=== PATIENT | male | born 1990 | race American Indian/Alaskan Native ===

== ENCOUNTER 2019-09-27 06:03 | Emergency (ER) | payer SELFPAY ==
[2019-09-27] MEDS ORDERED: SODIUM CHLORIDE 0.9% 1000 ML 1,000 ML ONE (06:31)
[2019-09-27] MEDS ORDERED: ONDANSETRON 4 MG/2 ML INJ ONE ×2 (06:31→06:36)
[2019-09-27] MEDS ORDERED: SODIUM CHLORIDE 0.9% 1000 ML 1,000 ML IV ONE (06:36)
[2019-09-27] MEDS ORDERED: fentaNYL 100 MCG/2 ML INJ ONE (06:36)
[2019-09-27 06:42] LABS: Basophils # (Auto) 0.1 K/mm3 (0.0-0.1); Basophils % (Auto) 0.7 % (0.0-1.8); Eosinophils # (Auto) 0.1 K/mm3 (0.0-0.4); Eosinophils % (Auto) 1.2 % (0.0-4.3); Hematocrit 43.4 % (35.5-45.6); Hemoglobin 14.1 gm/dl (11.8-15.2); Lymphocytes # (Auto) 2.3 K/mm3 (1.2-5.4); Lymphocytes % (Auto) 24.6 % (13.4-35.0); Mean Corpuscular HGB Conc 33 % (32-34); Mean Corpuscular Volume 78 fl (84-94); Monocytes % (Auto) 11.3 % (0.0-7.3); Platelet Count 383 K/mm3 (140-440)
[2019-09-27] MEDS ORDERED: ONDANSETRON 4 MG/2 ML INJ IV ONE (06:43)
[2019-09-27] MEDS ORDERED: fentaNYL 100 MCG/2 ML INJ IV ONE (06:43)
[2019-09-27 07:27] LABS: Alanine Aminotransferase 57 units/L (7-56); Albumin 4.4 g/dL (3.9-5); BUN/Creatinine Ratio 8; Blood Urea Nitrogen 8 mg/dL (9-20); Calcium 9.5 mg/dL (8.4-10.2); Hemolysis Index 16
[2019-09-27] MEDS ORDERED: KETOROLAC 30 MG/1 ML INJ IV ONE (08:01)
[2019-09-27] MEDS: FAMOTIDINE 20 MG/2 ML INJ IV ONE ×2 (08:10→08:14)
--- NOTE | 2019-09-27 08:19 | Ultrasound Report ---
ULTRASOUND ABDOMEN, COMPLETE INDICATION: uppr abd pain. COMPARISON: No relevant prior imaging study available. FINDINGS: Pancreas: No significant abnormality. Abdominal Aorta: No significant abnormality. IVC: No significant abnormality. Liver: The liver measures 19.6 cm in length. Diffusely echogenic. Normal hepatopedal blood flow in t he main portal vein. Gallbladder: Mild cholelithiasis with slight gallbladder wall thickening. There was a reported sonogr aphic Fung sign. Bile ducts: No significant abnormality. Common bile duct measures 8 mm. Kidneys: Right: 10.8 cm in length. No significant abnormality. Left: 10.9 cm in length. No signif icant abnormality. Spleen: No significant abnormality. Free fluid: None. Additional Findings: None. IMPRESSION: 1. Cholelithiasis with slight gallbladder wall thickening and reported sonographic Fung sign. These findings can be seen with acute cholecystitis and correlation with exam findings is recommended. In addition the CBD is slightly prominent measuring 8 mm but no gross CBD stone or pancreatic head mass was visualized on this exam. 2. Hepatomegaly with diffusely echogenic liver, most commonly seen with steatosis. Signer Name: Mac Almaraz MD Signed: 09/27/2019 8:14 AM Workstation Name: [id number]
--- NOTE | 2019-09-27 08:20 | Emergency Department Report ---
ED Abdominal Pain HPI - General Chief Complaint: Abdominal Pain Stated Complaint: ABDOMINAL PAIN Time Seen by Provider: 09/27/19 07:32 Source: patient Mode of arrival: Ambulatory Limitations: No Limitations - History of Present Illness Initial Comments: This is a 29-year-old male with no prior medical history or conditions who presents the ED today complaining of right upper abdominal pain that began around 1 AM this morning. Patient states that he had some fries last night for dinner otherwise no unusual foods. Patient states he has had a couple episodes of vomiting with severe cramping-like pain to the upper abdomen. Patient denies any injury, diarrhea, fever, chest pain, shortness of breath. Patient also denies alcohol consumption. MD Complaint: abdominal pain Location: RUQ Migration to: no migration Severity: moderate Severity scale (0 -10): 10 Quality: cramping, aching Associated Symptoms: nausea, vomiting. denies: diarrhea, fever, dysuria - Related Data Previous Rx's Medication Instructions Recorded Last Taken Type Dicyclomine [Bentyl] 20 mg PO TID #30 tablet 09/27/19 Unknown Rx Famotidine [Pepcid] 20 mg PO BID #20 tablet 09/27/19 Unknown Rx Metoclopramide [Reglan] 10 mg PO TID #30 tab 09/27/19 Unknown Rx traMADoL [Ultram 50 MG tab] 50 mg PO Q6HR PRN #20 tablet 09/27/19 Unknown Rx Allergies Allergy/AdvReac Type Severity Reaction Status Date / Time No Known Allergies Allergy Unverified 09/27/19 06:14 ED Review of Systems ROS: Stated complaint: ABDOMINAL PAIN Other details as noted in HPI Comment: All other systems reviewed and negative ED Past Medical Hx - Past Medical History Previous Medical History?: No - Surgical History Past Surgical History?: No - Social History Smoking Status: Never Smoker Substance Use Type: Marijuana - Medications Home Medications: Home Medications Medication Instructions Recorded Confirmed Last Taken Type Dicyclomine [Bentyl] 20 mg PO TID #30 tablet 09/27/19 Unknown Rx Famotidine [Pepcid] 20 mg PO BID #20 tablet 09/27/19 Unknown Rx Metoclopramide [Reglan] 10 mg PO TID #30 tab 09/27/19 Unknown Rx traMADoL [Ultram 50 MG tab] 50 mg PO Q6HR PRN #20 tablet 09/27/19 Unknown Rx ED Physical Exam - General Limitations: No Limitations General appearance: alert, in no apparent distress - Head Head exam: Present: atraumatic, normocephalic - Eye Eye exam: Present: normal appearance - ENT ENT exam: Present: mucous membranes moist - Neck Neck exam: Present: normal inspection - Respiratory Respiratory exam: Present: normal lung sounds bilaterally. Absent: respiratory distress - Cardiovascular Cardiovascular Exam: Present: regular rate, normal rhythm. Absent: systolic murmur, diastolic murmur, rubs, gallop - GI/Abdominal GI/Abdominal exam: Present: soft, normal bowel sounds. Absent: tenderness, guarding, rebound, organomegaly, mass - Expanded GI/Abdominal Exam Expanded GI/Abdominal exam: Present: Fung's sign. Absent: Rovsing's sign, tenderness at Mcburney's Point - Rectal Rectal exam: Present: deferred - Extremities Exam Extremities exam: Present: normal inspection - Back Exam Back exam: Present: normal inspection - Neurological Exam Neurological exam: Present: alert, oriented X3 - Psychiatric Psychiatric exam: Present: normal affect, normal mood - Skin Skin exam: Present: warm, dry, intact, normal color. Absent: rash ED Course Vital Signs 09/27/19 09/27/19 09/27/19 06:08 07:03 07:37 Temperature 98.1 F 97.8 F Pulse Rate 54 L 52 L Respiratory 22 16 18 Rate Blood Pressure 150/111 Blood Pressure 160/93 [Left] O2 Sat by Pulse 99 100 Oximetry 09/27/19 09/27/19 09/27/19 07:53 07:56 08:10 Temperature Pulse Rate 47 L Respiratory 18 18 22 Rate Blood Pressure Blood Pressure [Left] O2 Sat by Pulse 99 100 Oximetry 09/27/19 09/27/19 09/27/19 08:38 08:40 09:02 Temperature Pulse Rate 47 L 48 L Respiratory 18 18 18 Rate Blood Pressure Blood Pressure 179/111 166/108 [Left] O2 Sat by Pulse 99 100 Oximetry ED Medical Decision Making - Lab Data Result diagrams: 09/27/19 06:28 09/27/19 06:28 Laboratory Last Values WBC 9.2 K/mm3 (4.5-11.0) 09/27/19 06:28 RBC 5.60 M/mm3 (3.65-5.03) H 09/27/19 06:28 Hgb 14.1 gm/dl (11.8-15.2) 09/27/19 06:28 Hct 43.4 % (35.5-45.6) 09/27/19 06:28 MCV 78 fl (84-94) L 09/27/19 06:28 MCH 25 pg (28-32) L 09/27/19 06:28 MCHC 33 % (32-34) 09/27/19 06:28 RDW 16.0 % (13.2-15.2) H 09/27/19 06:28 Plt Count 383 K/mm3 (140-440) 09/27/19 06:28 Lymph % (Auto) 24.6 % (13.4-35.0) 09/27/19 06:28 [place] % (Auto) 11.3 % (0.0-7.3) H 09/27/19 06:28 Eos % (Auto) 1.2 % (0.0-4.3) 09/27/19 06:28 Baso % (Auto) 0.7 % (0.0-1.8) 09/27/19 06:28 Lymph # 2.3 K/mm3 (1.2-5.4) 09/27/19 06:28 [place] # 1.0 K/mm3 (0.0-0.8) H 09/27/19 06:28 Eos # 0.1 K/mm3 (0.0-0.4) 09/27/19 06:28 Baso # 0.1 K/mm3 (0.0-0.1) 09/27/19 06:28 Seg Neutrophils % 62.2 % (40.0-70.0) 09/27/19 06:28 Seg Neutrophils # 5.7 K/mm3 (1.8-7.7) 09/27/19 06:28 Sodium 140 mmol/L (137-145) 09/27/19 06:28 Potassium 3.2 mmol/L (3.6-5.0) L 09/27/19 06:28 Chloride 99.4 mmol/L (98-107) 09/27/19 06:28 Carbon Dioxide 22 mmol/L (22-30) 09/27/19 06:28 Anion Gap 22 mmol/L 09/27/19 06:28 BUN 8 mg/dL (9-20) L 09/27/19 06:28 Creatinine 1.0 mg/dL (0.8-1.5) 09/27/19 06:28 Estimated GFR > 60 ml/min 09/27/19 06:28 BUN/Creatinine Ratio 8 % 09/27/19 06:28 Glucose 146 mg/dL (75-100) H 09/27/19 06:28 Calcium 9.5 mg/dL (8.4-10.2) 09/27/19 06:28 Total Bilirubin 0.30 mg/dL (0.1-1.2) 09/27/19 06:28 AST 41 units/L (5-40) H 09/27/19 06:28 ALT 57 units/L (7-56) H 09/27/19 06:28 Alkaline Phosphatase 63 units/L (35-129) 09/27/19 06:28 Total Protein 8.2 g/dL (6.3-8.2) 09/27/19 06:28 Albumin 4.4 g/dL (3.9-5) 09/27/19 06:28 Albumin/Globulin Ratio 1.2 % 09/27/19 06:28 Lipase 22 units/L (13-60) 09/27/19 06:52 - EKG Data EKG shows normal: sinus rhythm Rate: bradycardia - EKG Data Interpretation: normal EKG - Radiology Data Radiology results: report reviewed, image reviewed ULTRASOUND ABDOMEN, COMPLETE INDICATION: uppr abd pain. COMPARISON: No relevant prior imaging study available. FINDINGS: Pancreas: No significant abnormality. Abdominal Aorta: No significant abnormality. IVC: No significant abnormality. Liver: The liver measures 19.6 cm in length. Diffusely echogenic. Normal hepatopedal blood flow in the main portal vein. Gallbladder: Mild cholelithiasis with slight gallbladder wall thickening. There was a reported sonographic Fung sign. Bile ducts: No significant abnormality. Common bile duct measures 8 mm. Kidneys: Right: 10.8 cm in length. No significant abnormality. Left: 10.9 cm in length. No significant abnormality. Spleen: No significant abnormality. Free fluid: None. Additional Findings: None. IMPRESSION: 1. Cholelithiasis with slight gallbladder wall thickening and reported sonographic Fung sign. These findings can be seen with acute cholecystitis and correlation with exam findings is recom mended. In addition the CBD is slightly prominent measuring 8 mm but no gross CBD stone or pancreatic head mass was visualized on this exam. 2. Hepatomegaly with diffusely echogenic liver, most commonly seen with steatosis. Signer Name: Mac Almaraz MD Signed: 09/27/2019 8:14 AM Workstation Name: [id number] Transcribed By: LONNIE Dictated By: Mac Almaraz MD Electronically Authenticated By: Mac Almaraz MD Signed Date/Time: 09/27/19 0814 - Medical Decision Making This 29-year-old male presents with abdominal pain secondary to gallbladder stone Patient received pain medication, 1 L of fluids and some antiemetic medications. Abdominal ultrasound shows, see report above. Discussed findings with the patient. All labs within normal limits patient had no leukocytosis or any liver function abnormalities or kidney function abnormalities. Patient had bradycardia during ED stay. Patient's pulse rate stayed consistent during ED stay. EKG completed, normal EKG with sinus bradycardia. Discussed with patient to follow-up with coining press operator as well. Discussed with patient to follow-up with recruiter coordinator in the next 2 to 3 days. Critical care attestation.: If time is entered above; I have spent that time in minutes in the direct care of this critically ill patient, excluding procedure time. ED Disposition Clinical Impression: Abdominal pain, Cholelithiasis, Biliary colic Disposition: DC- TO HOME OR SELFCARE Is pt being admited?: No Does the pt Need Aspirin: No Condition: Stable Instructions: Biliary Colic (ED), Gastroenteritis (ED), Acute Nausea and Vomiting (ED) Additional Instructions: Make sure to follow up with the primary care physician as discussed. Take all your medications as you've been prescribed. If you have any worsening symptoms or develop new symptoms please return to ED immediately. Prescriptions: Dicyclomine [Bentyl] 20 mg PO TID #30 tablet Famotidine [Pepcid] 20 mg PO BID #20 tablet Metoclopramide [Reglan] 10 mg PO TID #30 tab traMADoL [Ultram 50 MG tab] 50 mg PO Q6HR PRN #20 tablet PRN Reason: Pain Referrals: [facility] [Provider Group] - 3-5 Days [facility] [Provider Group] - 3-5 Days [facility] [Provider Group] - 3-[address] [facility] [Outside] - 3-5 Days [facility] [Outside] - 3-5 Days [facility] [Outside] - 3-5 Days GREGORIO MILLER MD [Staff Physician] - 3-5 Days PRIMARY CAREMD [Primary Care Provider] - 3-5 Days Forms: Work/School Release Form(ED) Time of Disposition: 08:30
[2019-09-27] MEDS ORDERED: METOCLOPRAMIDE 10 MG/2 ML INJ IV ONE (08:33)
[2019-09-27 09:04] VITALS: BP 166/108
[2019-09-27 09:11] LABS: Bacteria,Urine 1+ /HPF (Negative); Bilirubin,Urine NEG (Negative); Blood,Urine NEG (Negative); Calcium Oxalate Crystals,Urine 1+; Mucus,Urine 3+ /HPF
[2019-09-27 09:20] LABS: Color,Urine Yellow (Yellow)
== END 2019-09-27 09:42 | disposition home or self-care (01) ==
LOC: ED 06:03
DX: R10.11 Right upper quadrant pain (principal); R11.2 Nausea with vomiting, unspecified; K80.20 Calculus of gallbladder without cholecystitis without obstruction; K80.50 Calculus of bile duct without cholangitis or cholecystitis without obstruction; F12.10 Cannabis abuse, uncomplicated; Z79.899 Other long term (current) drug therapy
CPT/HCPCS: 36415; 76700; 80053; 81001; 83690; 85025; 93005; 96361; 96374; 96375; 99284; J1885; J2405; J3010; J7030

== ENCOUNTER 2019-10-11 09:25 | Emergency (ER) | payer SELFPAY ==
[2019-10-11 10:37] LABS: Basophils % (Auto) 0.3 % (0.0-1.8); Eosinophils % (Auto) 0.4 % (0.0-4.3); Hematocrit 40.2 % (35.5-45.6); Hemoglobin 13.1 gm/dl (11.8-15.2); Lymphocytes # (Auto) 1.4 K/mm3 (1.2-5.4); Lymphocytes % (Auto) 16.1 % (13.4-35.0); Mean Corpuscular HGB Conc 33 % (32-34); Mean Corpuscular Volume 79 fl (84-94); Monocytes # (Auto) 0.6 K/mm3 (0.0-0.8); Monocytes % (Auto) 6.8 % (0.0-7.3); Platelet Count 369 K/mm3 (140-440); Red Blood Count 5.07 M/mm3 (3.65-5.03); Red Cell Distribution Width 16.5 % (13.2-15.2)
[2019-10-11] MEDS: HYDROmorphone 1 MG/1 ML INJ IV ONE ×2 (10:54→13:02)
[2019-10-11] MEDS: ONDANSETRON 4 MG/2 ML INJ IV ONE (10:54)
[2019-10-11 10:57] LABS: Alanine Aminotransferase 38 units/L (7-56); Albumin 4.4 g/dL (3.9-5); BUN/Creatinine Ratio 7; Blood Urea Nitrogen 6 mg/dL (9-20); Calcium 10.1 mg/dL (8.4-10.2); Hemolysis Index 18
--- NOTE | 2019-10-11 12:04 | Emergency Department Report ---
ED Abdominal Pain HPI - General Chief Complaint: Abdominal Pain Stated Complaint: VOMITING/ABD Time Seen by Provider: 10/11/19 10:33 Source: patient Mode of arrival: Ambulatory Limitations: No Limitations - History of Present Illness Initial Comments: Chief complaint: "It is my gallbladder." HPI: This is a 29-year-old male with history of severe obesity who presents with right upper quadrant pain severe which began this morning. He ate rice and chic jonas last night. The food was take out from a restaurant. He also has nausea. Pain is sharp without radiation. He was referred to a physician when he was seen for same type of pain 2 weeks ago. Denies fever. MD Complaint: abdominal pain -: Gradual, This morning Location: RUQ Radiation: none Severity scale (0 -10): 10 Quality: sharp Consistency: constant Improves With: nothing Worsens With: nothing Context: other (Seen 2 weeks ago diagnosed with biliary colic) Associated Symptoms: nausea, vomiting - Related Data Previous Rx's Medication Instructions Recorded Last Taken Type Dicyclomine [Bentyl] 20 mg PO TID #30 tablet 09/27/19 Unknown Rx Famotidine [Pepcid] 20 mg PO BID #20 tablet 09/27/19 Unknown Rx Metoclopramide [Reglan] 10 mg PO TID #30 tab 09/27/19 Unknown Rx traMADoL [Ultram 50 MG tab] 50 mg PO Q6HR PRN #20 tablet 09/27/19 Unknown Rx HYDROcodone/APAP 5-325 [Rufus 1 each PO Q6HR PRN #10 tablet 10/11/19 Unknown Rx 5/325] Promethazine [Phenergan] 25 mg PO Q6HR PRN #10 tab 10/11/19 Unknown Rx Allergies Allergy/AdvReac Type Severity Reaction Status Date / Time No Known Allergies Allergy Unverified 09/27/19 06:14 ED Review of Systems ROS: Stated complaint: VOMITING/ABD Other details as noted in HPI Comment: All other systems reviewed and negative Constitutional: denies: fever, malaise Respiratory: denies: cough Gastrointestinal: abdominal pain, nausea, vomiting ED Past Medical Hx - Past Medical History Previous Medical History?: No - Surgical History Past Surgical History?: No - Social History Smoking Status: Never Smoker Substance Use Type: None - Medications Home Medications: Home Medications Medication Instructions Recorded Confirmed Last Taken Type Dicyclomine [Bentyl] 20 mg PO TID #30 tablet 09/27/19 Unknown Rx Famotidine [Pepcid] 20 mg PO BID #20 tablet 09/27/19 Unknown Rx Metoclopramide [Reglan] 10 mg PO TID #30 tab 09/27/19 Unknown Rx traMADoL [Ultram 50 MG tab] 50 mg PO Q6HR PRN #20 tablet 09/27/19 Unknown Rx HYDROcodone/APAP 5-325 [Rufus 1 each PO Q6HR PRN #10 tablet 10/11/19 Unknown Rx 5/325] Promethazine [Phenergan] 25 mg PO Q6HR PRN #10 tab 10/11/19 Unknown Rx ED Physical Exam - General Limitations: No Limitations General appearance: alert, other (Appears in severe pain holding right upper quadrant) - Head Head exam: Present: atraumatic, normocephalic - Eye Eye exam: Present: normal appearance - ENT ENT exam: Present: mucous membranes moist - Neck Neck exam: Present: normal inspection, full ROM - Respiratory Respiratory exam: Present: normal lung sounds bilaterally. Absent: respiratory distress, wheezes, rales, rhonchi - Cardiovascular Cardiovascular Exam: Present: regular rate, normal rhythm, normal heart sounds. Absent: systolic murmur, diastolic murmur, rubs, gallop - GI/Abdominal GI/Abdominal exam: Present: soft, normal bowel sounds. Absent: distended, tenderness, guarding, rebound - Rectal Rectal exam: Present: deferred - Extremities Exam Extremities exam: Present: normal inspection - Neurological Exam Neurological exam: Present: alert, oriented X3 - Psychiatric Psychiatric exam: Present: normal affect, normal mood - Skin Skin exam: Present: warm, dry, intact, normal color. Absent: rash ED Course Vital Signs 10/11/19 10/11/19 10/11/19 09:35 10:58 11:56 Temperature 97.5 F L Pulse Rate 45 L 45 L 45 L Respiratory 22 12 14 Rate Blood Pressure 148/96 Blood Pressure 154/122 163/109 [Left] O2 Sat by Pulse 100 100 97 Oximetry - Reevaluation(s) Reevaluation #1: 10/11/19 12:04 Pain has resolved with 1 dose of hydromorphone. ED Medical Decision Making - Lab Data Result diagrams: 10/11/19 10:00 10/11/19 10:00 - EKG Data 10/11/19 10:35 EKG obtained 09 48 Sinus bradycardia rate 45 bpm normal axis normal intervals no ST elevation no signs of ischemia no signs of pericarditis - Radiology Data Radiology results: report reviewed CT abdomen pelvis: Distended gallbladder without evidence of cholelithiasis or cholecystitis, hepatic steatosis also seen - Medical Decision Making Mr. Ortiz presents with biliary colic. I reviewed ultrasound report from September 26. Cholelithiasis noted at that time. Distended gallbladder seen today without evidence of cholelithiasis or cholecystitis. Patient has normal white count. No evidence of bili obstruction according to serum studies. I strongly encouraged low-fat diet. I referred him to general surgeon on-call. Prescribed Rufus and promethazine for symptom control. Recommended clear liquid diet. Pain easily controlled with 2 doses of IV medication. Critical care attestation.: If time is entered above; I have spent that time in minutes in the direct care of this critically ill patient, excluding procedure time. ED Disposition Clinical Impression: Acute abdominal pain, Cholelithiasis, Biliary colic Disposition: TO HOME OR SELFCARE Is pt being admited?: No Does the pt Need Aspirin: No Condition: Stable Instructions: Biliary Colic (ED) Additional Instructions: Clear liquid diet recommended for the next 24 hours. Prescriptions: HYDROcodone/APAP 5-325 [Rufus 5/325] 1 each PO Q6HR PRN #10 tablet PRN Reason: Pain Promethazine [Phenergan] 25 mg PO Q6HR PRN #10 tab PRN Reason: Nausea Referrals: RIGOBERTO COOMBS DO [Staff Physician] - 3-5 Days
--- NOTE | 2019-10-11 13:11 | Cat Scan Report ---
CT ABDOMEN AND PELVIS WITH CONTRAST INDICATION / CLINICAL INFORMATION: MAIN: Right upper quadrant pain history of cholelithiasi 100 ml omni 300. TECHNIQUE: Axial CT images were obtained through the abdomen and pelvis after 100 cc Omnipaque 300 milligrams pe rcent IV contrast. All CT scans at this location are performed using CT dose reduction for ALARA by means of automated exposure control. COMPARISON: Ultrasound of the abdomen dated 09/27/2019 Image quality is limited by patient's body habitus FINDINGS: LOWER CHEST: No significant abnormality. LIVER: Diffuse fatty infiltration of the liver is present. GALLBLADDER: Gallbladder is distended without obvious cholelithiasis by CT criteria BILE DUCTS: No significant abnormality. PANCREAS: No significant abnormality. SPLEEN: No significant abnormality. ADRENALS: No significant abnormality. RIGHT KIDNEY and URETER: No significant abnormality. LEFT KIDNEY and URETER: No significant abnormality. STOMACH and SMALL BOWEL: No significant abnormality. COLON: No significant abnormality. APPENDIX: No significant abnormality. PERITONEUM: No free fluid. No free air. No fluid collection. LYMPH NODES: No significant adenopathy. AORTA and ARTERIES: No significant abnormality. IVC and VEINS: No significant abnormality. URINARY BLADDER: No significant abnormality. REPRODUCTIVE ORGANS: No significant abnormality. Previous hysterectomy ADDITIONAL FINDINGS: None. SKELETAL SYSTEM: No significant abnormality. IMPRESSION: 1. Hepatic steatosis 2. Distended gallbladder without definite evidence of cholelithiasis or cholecystitis Signer Name: Noble Sandoval MD Signed: 10/11/2019 1:07 PM Workstation Name: [id number]
[2019-10-11] MEDS ORDERED: HYDROmorphone 1 MG/1 ML INJ IV ONE (13:55)
[2019-10-11 14:07] VITALS: BP 168/98
== END 2019-10-11 14:18 | disposition home or self-care (01) ==
LOC: ED 09:25
DX: K80.20 Calculus of gallbladder without cholecystitis without obstruction (principal); K80.50 Calculus of bile duct without cholangitis or cholecystitis without obstruction; Z98.890 Other specified postprocedural states; Z79.899 Other long term (current) drug therapy
CPT/HCPCS: 36415; 74177; 80053; 83690; 85025; 93005; 96374; 96375; 96376; 99285; J1170; J2405; Q9967

== ENCOUNTER 2020-10-12 07:55 | Emergency (ER) | payer SELFPAY ==
[2020-10-12 08:54] VITALS: BP 145/92
[2020-10-12] MEDS ORDERED: ONDANSETRON 4 MG ODT TAB PO ONE ×2 (09:21→09:23)
--- NOTE | 2020-10-12 09:31 | Event Note ---
ED Screening Note Date of service: 10/12/20 Time: 09:23 ED Screening Note: Patient complains of abdominal pain, nausea, and vomiting last night Pain is epigastric Denies hematemesis/coffee-ground emesis No history of abdominal surgeries Admits to smoking marijuana yesterday Patient actively vomiting This initial assessment/diagnostic orders/clinical plan/treatment(s) is/are subject to change based on patients health status, clinical progression and re- assessment by fellow clinical providers in the ED. Further treatment and workup at subsequent clinical providers discretion. Patient/guardian urged not to elope from the ED as their condition may be serious if not clinically assessed and managed. Initial orders include: Labs Zofran
[2020-10-12 10:41] LABS: Alanine Aminotransferase 12 units/L (7-56); Albumin 3.9 g/dL (3.9-5); Blood Urea Nitrogen 12 mg/dL (9-20); Hemolysis Index 110
[2020-10-12 10:47] LABS: BUN/Creatinine Ratio 17
[2020-10-12 10:54] LABS: Basophils # (Auto) 0.2 K/mm3 (0.0-0.1); Basophils % (Auto) 1.4 % (0.0-1.8); Eosinophils # (Auto) 0.1 K/mm3 (0.0-0.4); Eosinophils % (Auto) 0.7 % (0.0-4.3); Hematocrit 43.2 % (35.5-45.6); Hemoglobin 14.2 gm/dl (11.8-15.2); Lymphocytes # (Auto) 1.7 K/mm3 (1.2-5.4); Lymphocytes % (Auto) 13.1 % (13.4-35.0); Mean Corpuscular HGB Conc 33 % (32-34); Mean Corpuscular Volume 81 fl (84-94); Monocytes # (Auto) 1.2 K/mm3 (0.0-0.8); Monocytes % (Auto) 9.1 % (0.0-7.3); Platelet Count 328 K/mm3 (140-440); Red Blood Count 5.36 M/mm3 (3.65-5.03); Red Cell Distribution Width 16.1 % (13.2-15.2)
[2020-10-12] MEDS ORDERED: MORPHINE 4 MG/1 ML INJ IV ONE (11:17)
[2020-10-12] MEDS ORDERED: ONDANSETRON 4 MG/2 ML INJ IV ONE (11:17)
--- NOTE | 2020-10-12 11:20 | Emergency Department Report ---
ED General Adult HPI - General Chief complaint: Abdominal Pain Stated complaint: BODY PAIN/VOMITING Time Seen by Provider: 10/12/20 09:21 Source: patient Mode of arrival: Ambulatory Limitations: No Limitations - History of Present Illness Initial comments: The patient presents to the emergency department the chief complaint of abdominal pain started last night. Patient describes nausea and vomiting with abdominal pain. When asked to point to the place of pain the patient points to the epigastric and left upper quadrant regions. Patient denies anything making the pain better or worse. He describes the pain is sharp in nature denies any radiation to his back. Patient denies chest pain or shortness of breath. Patient reports no allergies. -: Sudden Location: abdomen Radiation: non-radiation Severity scale (0 -10): 7 Quality: sharp Consistency: constant Improves with: none Worsens with: none Associated Symptoms: denies other symptoms Treatments Prior to Arrival: none - Related Data Previous Rx's Medication Instructions Recorded Last Taken Type Metoclopramide [Reglan] 10 mg PO TID #30 tab 09/27/19 Unknown Rx HYDROcodone/APAP 5-325 [[place] 1 each PO Q6HR PRN #10 tablet 10/11/19 Unknown Rx 5/325] Promethazine [Phenergan] 25 mg PO Q6HR PRN #10 tab 10/11/19 Unknown Rx Dicyclomine [Bentyl] 20 mg PO TID #30 tablet 10/22/19 Unknown Rx Famotidine [Pepcid] 20 mg PO Q12H #60 tablet 10/22/19 Unknown Rx Ondansetron [Zofran Odt] 4 mg PO Q6HR PRN #20 tab.rapdis 10/22/19 Unknown Rx traMADoL [Ultram 50 MG tab] 50 mg PO Q6HR PRN #12 tablet 10/22/19 Unknown Rx Dicyclomine [Bentyl] 10 mg PO QID PRN #20 capsule 10/12/20 Unknown Rx Ondansetron [Zofran Odt] 4 mg PO Q4HR PRN #20 tab.rapdis 10/12/20 Unknown Rx Promethazine [Phenergan TAB] 25 mg PO Q6HR PRN #20 tab 10/12/20 Unknown Rx Allergies Allergy/AdvReac Type Severity Reaction Status Date / Time No Known Allergies Allergy Verified 10/22/19 18:10 ED Review of Systems ROS: Stated complaint: BODY PAIN/VOMITING Other details as noted in HPI Comment: All other systems reviewed and negative Constitutional: denies: chills, fever Eyes: denies: eye pain, eye discharge, vision change ENT: denies: ear pain, throat pain Respiratory: denies: cough, shortness of breath, wheezing Cardiovascular: denies: chest pain, palpitations Endocrine: no symptoms reported Gastrointestinal: abdominal pain, nausea, vomiting. denies: diarrhea Genitourinary: denies: urgency, dysuria Musculoskeletal: denies: back pain, joint swelling, arthralgia Skin: denies: rash, lesions Neurological: denies: headache, weakness, paresthesias Psychiatric: denies: anxiety, depression Hematological/Lymphatic: denies: easy bleeding, easy bruising ED Past Medical Hx - Past Medical History Previous Medical History?: No - Surgical History Past Surgical History?: No - Social History Smoking Status: Current Every Day Smoker Substance Use Type: Alcohol, Marijuana - Medications Home Medications: Home Medications Medication Instructions Recorded Confirmed Last Taken Type Metoclopramide [Reglan] 10 mg PO TID #30 tab 09/27/19 Unknown Rx HYDROcodone/APAP 5-325 [[place] 1 each PO Q6HR PRN #10 tablet 10/11/19 Unknown Rx 5/325] Promethazine [Phenergan] 25 mg PO Q6HR PRN #10 tab 10/11/19 Unknown Rx Dicyclomine [Bentyl] 20 mg PO TID #30 tablet 10/22/19 Unknown Rx Famotidine [Pepcid] 20 mg PO Q12H #60 tablet 10/22/19 Unknown Rx Ondansetron [Zofran Odt] 4 mg PO Q6HR PRN #20 tab.rapdis 10/22/19 Unknown Rx traMADoL [Ultram 50 MG tab] 50 mg PO Q6HR PRN #12 tablet 10/22/19 Unknown Rx Dicyclomine [Bentyl] 10 mg PO QID PRN #20 capsule 10/12/20 Unknown Rx Ondansetron [Zofran Odt] 4 mg PO Q4HR PRN #20 tab.rapdis 10/12/20 Unknown Rx Promethazine [Phenergan TAB] 25 mg PO Q6HR PRN #20 tab 10/12/20 Unknown Rx ED Physical Exam - General Limitations: No Limitations General appearance: alert, in no apparent distress - Head Head exam: Present: atraumatic, normocephalic - Eye Eye exam: Present: normal appearance, PERRL, EOMI - ENT ENT exam: Present: mucous membranes dry - Neck Neck exam: Present: normal inspection - Respiratory Respiratory exam: Present: normal lung sounds bilaterally. Absent: respiratory distress - Cardiovascular Cardiovascular Exam: Present: regular rate, normal rhythm. Absent: systolic murmur, diastolic murmur, rubs, gallop - GI/Abdominal GI/Abdominal exam: Present: soft, tenderness (Epigastric tenderness to palpation), normal bowel sounds - Rectal Rectal exam: Present: deferred - Extremities Exam Extremities exam: Present: normal inspection - Back Exam Back exam: Present: normal inspection - Neurological Exam Neurological exam: Present: alert, oriented X3, CN II-XII intact. Absent: motor sensory deficit - Psychiatric Psychiatric exam: Present: normal affect, normal mood - Skin Skin exam: Present: warm, dry, intact, normal color. Absent: rash ED Course Vital Signs 10/12/20 10/12/20 08:50 11:16 Temperature 98.5 F Pulse Rate 74 Respiratory 24 18 Rate Blood Pressure 145/92 O2 Sat by Pulse 100 Oximetry ED Medical Decision Making - Lab Data Result diagrams: 10/12/20 09:27 10/12/20 09:27 Lab Results 10/12/20 10/12/20 10/12/20 Range/Units 09:27 09:27 11:35 WBC 13.0 H (4.5-11.0) K/mm3 RBC 5.36 H (3.65-5.03) M/mm3 Hgb 14.2 (11.8-15.2) gm/dl Hct 43.2 (35.5-45.6) % MCV 81 L (84-94) fl MCH 27 L (28-32) pg MCHC 33 (32-34) % RDW 16.1 H (13.2-15.2) % Plt Count 328 (140-440) K/mm3 Lymph % (Auto) 13.1 L (13.4-35.0) % [place] % (Auto) 9.1 H (0.0-7.3) % Eos % (Auto) 0.7 (0.0-4.3) % Baso % (Auto) 1.4 (0.0-1.8) % Lymph # (Auto) 1.7 (1.2-5.4) K/mm3 [place] # (Auto) 1.2 H (0.0-0.8) K/mm3 Eos # (Auto) 0.1 (0.0-0.4) K/mm3 Baso # (Auto) 0.2 H (0.0-0.1) K/mm3 Seg Neutrophils % 75.7 H (40.0-70.0) % Seg Neutrophils # 9.8 H (1.8-7.7) K/mm3 Sodium 137 (137-145) mmol/L Potassium 4.2 (3.6-5.0) mmol/L Chloride 99.9 (98-107) mmol/L Carbon Dioxide 21 L (22-30) mmol/L Anion Gap 20 mmol/L BUN 12 (9-20) mg/dL Creatinine 0.7 L (0.8-1.3) mg/dL Estimated GFR > 60 ml/min BUN/Creatinine Ratio 17 % Glucose 131 H (75-100) mg/dL Calcium 9.0 (8.4-10.2) mg/dL Total Bilirubin 0.20 (0.1-1.2) mg/dL AST 21 (5-40) units/L ALT 12 (7-56) units/L Alkaline Phosphatase 67 (35-129) units/L Total Protein 7.6 (6.3-8.2) g/dL Albumin 3.9 (3.9-5) g/dL Albumin/Globulin Ratio 1.1 % Lipase 26 19 (13-60) units/L - Radiology Data Radiology results: report reviewed - Medical Decision Making Discussed results with patient Critical care attestation.: If time is entered above; I have spent that time in minutes in the direct care of this critically ill patient, excluding procedure time. ED Disposition Clinical Impression: Abdominal pain Disposition: DC-01 TO HOME OR SELFCARE Is pt being admited?: No Does the pt Need Aspirin: No Condition: Stable Instructions: Abdominal Pain, Adult Additional Instructions: return if worse Referrals: PRIMARY CAREMD [Primary Care Provider] - 3-5 Days QUINN YING MD [Staff Physician] - 3-5 Days Time of Disposition: 13:09
--- NOTE | 2020-10-12 12:48 | Cat Scan Report ---
CT abdomen pelvis w con INDICATION: MAIN. Abdominal pain TECHNIQUE: All CT scans at this location are performed using CT dose reduction for ALARA by means of automated e xposure control. COMPARISON: 10/11/2019 FINDINGS: Lung bases are clear of acute disease. Mild hepatic steatosis, with no focal liver lesions. Gallbladd er, spleen, pancreas, kidneys and adrenals are negative. Abdominal aorta is normal in size. No adenop athy. Pelvis Normal appendix. Urinary bladder appears negative. No free fluid or inflammatory change. No obvious b owel abnormalities. No acute skeletal lesions. IMPRESSION: 1. Mild hepatic steatosis, unchanged from one year ago. 2. No acute abnormalities. Signer Name: Cole Calles MD Signed: 10/12/2020 12:42 PM Workstation Name: [id number]
== END 2020-10-12 13:34 | disposition home or self-care (01) ==
LOC: ED 07:55
DX: R10.9 Unspecified abdominal pain (principal); F17.200 Nicotine dependence, unspecified, uncomplicated; F12.90 Cannabis use, unspecified, uncomplicated; Z79.899 Other long term (current) drug therapy
CPT/HCPCS: 36415; 74177; 80053; 83690; 85025; 96374; 96375; 99284; J2270; J2405; Q9967; Q0162

== ENCOUNTER 2021-07-30 14:36 | Emergency (ER) | payer SELFPAY ==
[2021-07-30 15:09] VITALS: BP 155/97
--- NOTE | 2021-07-30 16:14 | Emergency Department Report ---
ED ENT HPI - General Chief complaint: Sore Throat Stated complaint: THROAT SWELLING/DIFFICULTY BREATHING Source: patient Mode of arrival: Ambulatory Limitations: No Limitations - History of Present Illness Initial comments: 31-year-old male presents to the ED with sudden onset of sore throat x2 days. Patient states that he has painful swallowing and has been taking Tylenol The raFlu for the the last 2-day. He states that he has funny taste and smell from his mouth. Patient states the pain currently 8 out of 10. Patient states that he is concerned that he possibly have strep throat through exposure. Patient is alert and oriented x3. No acute distress noted. No ill appearance noted.. Onset/Timin -: days(s) Severity scale (0 -10): 8 Quality: aching Consistency: intermittent Improves with: none Worsens with: swallowing Associated Symptoms: pain with swallowing, sore throat - Related Data Previous Rx's Medication Instructions Recorded Last Taken Type Metoclopramide [Reglan] 10 mg PO TID #30 tab 09/27/19 Unknown Rx HYDROcodone/APAP 5-325 [[place] 1 each PO Q6HR PRN #10 tablet 10/11/19 Unknown Rx 5/325] Promethazine [Phenergan] 25 mg PO Q6HR PRN #10 tab 10/11/19 Unknown Rx Dicyclomine [Bentyl] 20 mg PO TID #30 tablet 10/22/19 Unknown Rx Famotidine [Pepcid] 20 mg PO Q12H #60 tablet 10/22/19 Unknown Rx Ondansetron [Zofran Odt] 4 mg PO Q6HR PRN #20 tab.rapdis 10/22/19 Unknown Rx traMADoL [Ultram 50 MG tab] 50 mg PO Q6HR PRN #12 tablet 10/22/19 Unknown Rx Dicyclomine [Bentyl] 10 mg PO QID PRN #20 capsule 10/12/20 Unknown Rx Ondansetron [Zofran Odt] 4 mg PO Q4HR PRN #20 tab.rapdis 10/12/20 Unknown Rx Promethazine [Phenergan TAB] 25 mg PO Q6HR PRN #20 tab 10/12/20 Unknown Rx Ibuprofen [Motrin] 800 mg PO Q8HR PRN 15 Days #30 07/30/21 Unknown Rx tablet Penicillin V Potassium 500 mg PO BID 10 Days #20 tab 02/18/22 Unknown Rx Allergies Allergy/AdvReac Type Severity Reaction Status Date / Time No Known Allergies Allergy Verified 10/22/19 18:10 ED Dental HPI - General Chief complaint: Sore Throat Stated complaint: THROAT SWELLING/DIFFICULTY BREATHING Source: patient Mode of arrival: Ambulatory Limitations: No Limitations - Related Data Previous Rx's Medication Instructions Recorded Last Taken Type Metoclopramide [Reglan] 10 mg PO TID #30 tab 09/27/19 Unknown Rx HYDROcodone/APAP 5-325 [[place] 1 each PO Q6HR PRN #10 tablet 10/11/19 Unknown Rx 5/325] Promethazine [Phenergan] 25 mg PO Q6HR PRN #10 tab 10/11/19 Unknown Rx Dicyclomine [Bentyl] 20 mg PO TID #30 tablet 10/22/19 Unknown Rx Famotidine [Pepcid] 20 mg PO Q12H #60 tablet 10/22/19 Unknown Rx Ondansetron [Zofran Odt] 4 mg PO Q6HR PRN #20 tab.rapdis 10/22/19 Unknown Rx traMADoL [Ultram 50 MG tab] 50 mg PO Q6HR PRN #12 tablet 10/22/19 Unknown Rx Dicyclomine [Bentyl] 10 mg PO QID PRN #20 capsule 10/12/20 Unknown Rx Ondansetron [Zofran Odt] 4 mg PO Q4HR PRN #20 tab.rapdis 10/12/20 Unknown Rx Promethazine [Phenergan TAB] 25 mg PO Q6HR PRN #20 tab 10/12/20 Unknown Rx Ibuprofen [Motrin] 800 mg PO Q8HR PRN 15 Days #30 07/30/21 Unknown Rx tablet Penicillin V Potassium 500 mg PO BID 10 Days #20 tab 07/30/21 Unknown Rx Allergies Allergy/AdvReac Type Severity Reaction Status Date / Time No Known Allergies Allergy Verified 10/22/19 18:10 ED Review of Systems ROS: Stated complaint: THROAT SWELLING/DIFFICULTY BREATHING Other details as noted in HPI Constitutional: denies: chills, fever Eyes: denies: eye pain, eye discharge, vision change ENT: throat pain. denies: ear pain Respiratory: denies: cough, shortness of breath, wheezing Cardiovascular: denies: chest pain, palpitations Endocrine: no symptoms reported Gastrointestinal: denies: abdominal pain, nausea, diarrhea Genitourinary: denies: urgency, dysuria Musculoskeletal: denies: back pain, joint swelling, arthralgia Skin: denies: rash, lesions Neurological: denies: headache, weakness, paresthesias Psychiatric: denies: anxiety, depression Hematological/Lymphatic: denies: easy bleeding, easy bruising ED Past Medical Hx - Social History Smoking Status: Current Every Day Smoker Substance Use Type: Alcohol, Marijuana - Medications Home Medications: Home Medications Medication Instructions Recorded Confirmed Last Taken Type Metoclopramide [Reglan] 10 mg PO TID #30 tab 09/27/19 Unknown Rx HYDROcodone/APAP 5-325 [[place] 1 each PO Q6HR PRN #10 tablet 10/11/19 Unknown Rx 5/325] Promethazine [Phenergan] 25 mg PO Q6HR PRN #10 tab 10/11/19 Unknown Rx Dicyclomine [Bentyl] 20 mg PO TID #30 tablet 10/22/19 Unknown Rx Famotidine [Pepcid] 20 mg PO Q12H #60 tablet 10/22/19 Unknown Rx Ondansetron [Zofran Odt] 4 mg PO Q6HR PRN #20 tab.rapdis 10/22/19 Unknown Rx traMADoL [Ultram 50 MG tab] 50 mg PO Q6HR PRN #12 tablet 10/22/19 Unknown Rx Dicyclomine [Bentyl] 10 mg PO QID PRN #20 capsule 10/12/20 Unknown Rx Ondansetron [Zofran Odt] 4 mg PO Q4HR PRN #20 tab.rapdis 10/12/20 Unknown Rx Promethazine [Phenergan TAB] 25 mg PO Q6HR PRN #20 tab 10/12/20 Unknown Rx Ibuprofen [Motrin] 800 mg PO Q8HR PRN 15 Days #30 07/30/21 Unknown Rx tablet Penicillin V Potassium 500 mg PO BID 10 Days #20 tab 07/30/21 Unknown Rx ED Physical Exam - General Limitations: No Limitations General appearance: alert, in no apparent distress - Head Head exam: Present: atraumatic, normocephalic - Eye Eye exam: Present: normal appearance - ENT ENT exam: Present: mucous membranes moist - Expanded ENT Exam Expanded Throat exam: Positive: tonsillar erythema, tonsillomegaly, tonsillar exudate - Neck Neck exam: Present: normal inspection - Respiratory Respiratory exam: Present: normal lung sounds bilaterally. Absent: respiratory distress - Cardiovascular Cardiovascular Exam: Present: regular rate, normal rhythm. Absent: systolic murmur, diastolic murmur, rubs, gallop - GI/Abdominal GI/Abdominal exam: Present: soft, normal bowel sounds - Rectal Rectal exam: Present: deferred - Extremities Exam Extremities exam: Present: normal inspection - Back Exam Back exam: Present: normal inspection - Neurological Exam Neurological exam: Present: alert, oriented X3 - Psychiatric Psychiatric exam: Present: normal affect, normal mood - Skin Skin exam: Present: warm, dry, intact, normal color. Absent: rash ED Course Vital Signs 07/30/21 07/30/21 15:07 16:07 Temperature 98.5 F Pulse Rate 92 H 80 Respiratory 18 Rate Blood Pressure 155/97 O2 Sat by Pulse 99 98 Oximetry ED Medical Decision Making - Medical Decision Making 31-year-old male presents to the ED with sudden onset of sore throat x2 days. Patient states that he has painful swallowing and has been taking Tylenol TheraFlu for the the last 2-day. He states that he has funny taste and smell from his mouth. Patient states the pain currently 8 out of 10. Patient states that he is concerned that he possibly have strep throat through exposure. Patient is alert and oriented x3. No acute distress noted. No ill appearance noted. Physical examination show enlarged tonsils with exudate. Uvula midline. rapid strep -negative. We will treat patient for tonsillitis with exudate. No other pertinent. Rechecked the patient is resting quietly quietly and comfortable and feeling better. I discussed the results of diagnostic study, my clinical impression and the plan for further treatment with the patient. Patient agrees with plan and discharge at this present time. All question addressed. I have given the patient instruction regarding a diagnosis ,expectation ,follow- up and return precaution. I explained to the patient that emergent condition may arise and to return to the ED for new worsen and any new persisting condition. I have explained the importance of following up with the primary care physician or referral physician listed below has instructed. The patient verbalized understanding of discharge instruction. Critical care attestation.: If time is entered above; I have spent that time in minutes in the direct care of this critically ill patient, excluding procedure time. ED Disposition Clinical Impression: Acute tonsillitis Qualifiers: Pharyngitis/tonsillitis etiology: unspecified etiology Qualified Code(s): J03.90 - Acute tonsillitis, unspecified Disposition: HOME / SELF CARE / HOMELESS Is pt being admited?: No Does the pt Need Aspirin: No Condition: Stable Instructions: Tonsillitis, [id number] Additional Instructions: Take medication as prescribed Return to ED for any worsening Prescriptions: Ibuprofen [Motrin] 800 mg PO Q8HR PRN 15 Days #30 tablet PRN Reason: Pain, Moderate (4-6) Penicillin V Potassium 500 mg PO BID 10 Days #20 tab Referrals: PRIMARY CARE, [Primary Care Provider] - 3-5 Days [facility] [Provider Group] - 3-5 Days Forms: Work/School Release Form(ED)
== END 2021-07-30 17:50 | disposition home or self-care (01) ==
LOC: ED 14:36
DX: J03.90 Acute tonsillitis, unspecified (principal); F17.200 Nicotine dependence, unspecified, uncomplicated; F12.90 Cannabis use, unspecified, uncomplicated; Z72.89 Other problems related to lifestyle; Z79.899 Other long term (current) drug therapy
CPT/HCPCS: 87116; 87430; 99283